=== PATIENT | male | born 1935 | race Caucasian/White ===

== ENCOUNTER 2016-06-16 11:01 | Emergency (ER) | payer OTHER, MEDICARE ==
--- NOTE | 2016-06-16 11:10 | UCPHY ---
H & P Patient Type: Established HPI/ROS: HPI CHIEF COMPLAINT: Right-sided sharp stabbing leg pain down to the foot HISTORY OF PRESENT ILLNESS: This patient is a very pleasant 81-year-old male significant past medical history for COPD on oxygen 2 L nasal cannula, hyperlipidemia, hypertension, presents to the urgent care with right-sided sharp stabbing intermittent leg pain that radiates to his foot. Patient tells me that he denies any recent injury or back injury. The pain is located in his right posterior superior iliac crest that radiates down his right gluteus across his anterior thigh down to his knee and then from his knee it shoots to his right foot. It is worse with certain movements. He denies any recent injury. Tells me he has been noticing it on and off over the past 2 months however really acutely worse over the past 3 days. He denies any bowel or bladder incontinence, denies saddle anesthesia, denies abdominal pain, denies chest pain or shortness of breath, denies urinary symptoms specifically blood in his urine. No history of sciatica. Past Medical History: COPD on oxygen 2 L nasal cannula, hyperlipidemia, hypertension Past Surgical History: patient states he has had "22 surgeries" includes but not limited to appendectomy cholecystectomy, recent knee scope, diaphragmatic repair on the right Social History: lives locally, denies drugs alcohol tobacco products Family History: noncontributory ROS REVIEW OF SYSTEMS: A comprehensive 10 point review of systems is otherwise negative aside from elements mentioned in the history of present illness. Exam Constitutional triage nursing summary reviewed, vital signs reviewed, awake/ alert. Eyes normal conjunctivae and sclera, EOMI, PERRLA. HENT normal inspection, atraumatic, moist mucus membranes, no epistaxis, neck supple/ no meningismus, no raccoon eyes. Respiratory clear to auscultation bilaterally, normal breath sounds, no respiratory distress, no wheezing. Cardiovascular rate normal, regular rhythm, no murmur, no edema, distal pulses normal. Gastrointestinal soft, non-tender, no rebound, no guarding, normal bowel sounds, no distension, no pulsatile mass. Genitourinary no CVA tenderness. Musculoskeletal back exam: no midline lumbar spine pain specifically no step- offs, no crepitus, full range of motion, no calf swelling, no tenderness of extremities, no meningismus, good pulses, neurovascularly intact. Of note this patient's right foot is neurovascular intact warm extremity good pulse, no evidence of significant calf swelling or calf pain. Skin pink, warm, & dry, no rash, skin atraumatic. Neurologic awake, alert and oriented x 3, AAOx3, moves all 4 extremities equally, motor intact, sensory intact, CN II-XII intact, normal cerebellar, normal vision, normal speech. Psychiatric normal mood/affect. Heme/Lymph/Immune no lymphadenopathy. Differential Diagnosis: includes but is not limited to in a particular order, sciatica, annular tear, compression fracture, nerve root compression, doubt ruptured AAA Medical Decision Making: this patient had an x-ray of the lumbar spine to rule out compression fracture or significant malalignment. I did explain to the patient that most likely this is sciatica will perform x-ray to make sure does not have significant compression fracture I will allow him to go home with [place] pain control. I did explain should probably follow up with his primary care doctor he continues to have sharp stabbing pain radiating down his right leg. Re-evaluation: 1209: Re-examination at this time this patient is resting comfortably. I did review his urinalysis an x-ray. Urinalysis shows no evidence of blood or infection. The x-ray shows degenerative joint disease however no evidence significant malalignment or compression fracture. ED x-ray lumbar spine: mild degenerative joint changes small lumbar drain mental canal. Stable dense atherosclerotic calcification of abdominal aorta and iliac arteries. Image interpreted by myself. 1213: I did review with this patient is x-ray results and urinalysis. Feels comfortable going home I did explain that he should follow up with his primary care doctor about his sciatica and back pain and lumbar radiculopathy. He may need outside imaging of an MRI. This time there is no evidence of acute cord compression or cauda equina syndrome. His x-ray she does show degenerative joint disease most likely has nerve root compression causing this severe sharp stabbing pain down right leg to foot. His otherwise leg is warm, and neurovascular intact. Source: Patient - Personal History Tetanus Vaccine Date: WITHIN 10 YRS - Medical/Surgical History Hx Asthma: No Hx Chronic Respiratory Disease: Yes Hx Diabetes: No Hx Cardiac Disease: No Hx Renal Disease: No Hx Cirrhosis: No Hx Alcoholism: No Hx HIV/AIDS: No Hx Splenectomy or Spleen Trauma: No Other PMH: depression, high cholesterol. sleep apnea. 17surgeries : 7 on r foot, vasectomy, bilat hernia repair, appy, cholecystecomy, ruptured diaphram, throat surgery x 2, tonsillectomy - Family History Significant Family History: No pertinent family hx - Social History Smoking Status: Never smoked Constitutional: Initial Vital Signs Temperature (C) 36.6 C 06/16/16 11:18 Heart Rate 86 06/16/16 11:18 Respiratory Rate 18 06/16/16 11:18 Blood Pressure 156/86 H 06/16/16 11:18 O2 Sat (%) 97 06/16/16 11:18 O2 Delivery Mode Room Air Allergies/Adverse Reactions: morphine [Morphine] Allergy (Unknown, Verified 07/30/15 09:01) VOMITS Home Medications: Medication Instructions Recorded Aspirin [Aspirin 81mg] 81 mg PO DAILY 12/15/10 Advair 100/50 (RX) 09/08/13 Proair Hfa Icu (RX) 09/08/13 Albuterol [Proventil Neb] 3 ml IH Q4 PRN #25 deyvial 07/30/15 Atorvastatin Calcium 07/30/15 Citalopram 07/30/15 Ipratropium 07/30/15 Curtis Red 3 Krill Oil 07/30/15 Oxygen Home 07/30/15 Preservision Softgel 07/30/15 Medical Decision Making - Data Points Laboratory Results: 06/16/16 11:15 Urine Color YELLOW Urine Appearance CLEAR Urine pH 5.0 (5.0-7.5) Ur Specific [place] >= 1.030 (1.002-1.030) Urine Protein NEGATIVE (NEGATIVE) Urine Ketones NEGATIVE (NEGATIVE) Urine Blood NEGATIVE (NEGATIVE) Urine Nitrate NEGATIVE (NEGATIVE) Urine Bilirubin NEGATIVE (NEGATIVE) Urine Urobilinogen 0.2 EU EU (0.2-1.0) Ur Leukocyte Esterase NEGATIVE (NEGATIVE) Ur Culture Indicated? NOT INDICATED (NI) Urine Glucose NEGATIVE (NEGATIVE) Departure - Departure Disposition: Home, Routine, Self-Care Clinical Impression: Sciatica Qualifiers: Laterality: right Qualified Code(s): M54.31 - Sciatica, right side Condition: Good Instructions: Lumbar Radiculopathy (ED), Sciatica (ED), Lower Back Exercises ( ED) Additional Instructions: 1. I do recommend that you follow up with your primary care doctor about your sciatica type pain. 2. I prescribed her limited supply of narcotic pain medicine called Joyce. This medication can make you drowsy and nauseous please be careful how much she take. 3.If you have severe pain nausea vomiting abdominal pain return to the emergency room urgent care. Referrals: Awa Long MD [Primary Care Provider] - As per Instructions - PQRS PQRS Measurement: 134: Depression screening and followup, PRIME MD-PHQ2 (12 years and older) Over the last 2 weeks, how often have you been bothered by any of the following problems? 1. Feeling down, depressed, or hopeless? 2. Little interest or pleasure in doing things? Patient answered no to both 1 and 2 130: Documentation of medications. Reviewed all patient medications, doses, route and frequency. 226: Do you smoke? No. 47: 65 and older: Advanced care planning. Declines 51: 18 years old and older with diagnosis of COPD, spirometry performance. Spirometry not performed; equipment not available. 52: 18 years old and older with COPD and symptoms of COPD or FEV1<60% predicted prescribed a B Agonist. Spirometry not performed; equipment not available.
[2016-06-16 11:20] VITALS: BP 156/86; RESP 18; TEMP 98; O2SAT 97
[2016-06-16 11:28] LABS: COLOR YELLOW; LEUKOCYTE ESTERASE,URINE NEGATIVE (NEGATIVE); NITRITE,URINE NEGATIVE (NEGATIVE)
[2016-06-16 11:44] VITALS: PULSE 86
== END 2016-06-16 12:30 | disposition home or self-care (01) ==
LOC: CED 11:01
DX: M54.31 Sciatica, right side (principal); E78.5 Hyperlipidemia, unspecified; I10 Essential (primary) hypertension; J44.9 Chronic obstructive pulmonary disease, unspecified
CPT/HCPCS: 72100; G0463; 81003-PO; 99214-PO

== ENCOUNTER 2016-11-01 08:34 | Inpatient (IN) | payer OTHER, MEDICARE ==
--- NOTE | 2016-11-01 08:50 | CPEKG ---
Heart Rate: 66 RR Interval: 909 P-R Interval: 204 QRSD Interval: 118 QT Interval: 432 QTC Interval: 453 P [place]: 76 QRS [place]: 107 T Wave [place]: 25 EKG Severity - ABNORMAL ECG - EKG Impression: SINUS RHYTHM EKG Impression: LEFT POSTERIOR FASCICULAR BLOCK Electronically Signed By: Eric Oneal 01-Nov-2016 15:47:09
--- NOTE | 2016-11-01 08:52 | EDPHY ---
HPI/HX/ROS/PE/MDM Narrative: CHIEF COMPLAINT: Left chest wall pain HPI: The patient is an 81-year-old male with a history of COPD who complains of sudden onset of left mid x-ray line pain that began at approximately 2:00 a.m. this morning. The patient was asleep and then rolled over onto his left side which caused severe pain along his left chest wall. Reports pain is improved by lying flat. He states he falls frequently and his fall and injured his chest several times over the last few weeks, but did not have any pain in his chest following those falls. He denies history of blood clot. No diaphoresis or shortness of breath. The patient denies pain anywhere else other than his chest wall. REVIEW OF SYSTEMS: Aside from elements discussed in the HPI, a comprehensive 10-point review of systems was reviewed and is negative. PMH: Includes COPD on baseline oxygen, hypertension, hyperlipidemia. SOCIAL HISTORY: Denies alcohol or drug abuse. PHYSICAL EXAM: General:Patient is alert, in no acute distress. ENT:Eyes are normal to inspection. ENT inspection normal. Neck: Normal inspection. Full range of motion. Respiratory:No respiratory distress. Breath sounds normal bilaterally. Palpation of left chest wall does not elicit pain, but patient states this is the area where it hurts. There is no ecchymosis, abrasion or rash. Cardiovascular: Regular rate and rhythm. Strong peripheral pulses. Normal cap refill. Abdomen:The abdomen is nontender to palpation. There are no peritoneal signs. There are normal bowel sounds. Back: Normal to inspection. No tenderness to palpation. Skin: Normal color. No rash. Warm and dry. Extremities: Normal appearance. Full range of motion. No pedal edema or calf tenderness. Neuro: Oriented x3. Normal motor function. Normal sensory function. (Eric Oneal) ED Course: EKG was ordered and interpreted by myself. Please see [employer] system for official reading. Chest x-ray viewed by myself. Interpreted by the radiologist as suspicious for left-sided pneumothorax. CT angio of the chest was performed and is positive for large left-sided pneumothorax, no PE. (Eric Oneal) This patient arrived from [facility]. He has a known large pneumothorax. He was met on arrival by Dr. Jayce Hwang. He has good vital signs and he is in no acute distress. The patient has been turned over to Dr. Hwang this point. (Lorenzo Alfonso) MDM: This patient presents with spontaneous onset of chest pain while lying in bed and is found to have a large pneumothorax. Given his history of COPD, I suspect this likely is a spontaneous pneumothorax. Patient does states that he has a history of some mild falls over the last few weeks, so we must entertain the idea this is possibly traumatic, however no rib fractures are seen and the chest wall is atraumatic, so I suspect this is unlikely. The patient requires transport to the ER at [facility] for chest tube placement. Given the fact that he is elderly, oxygen dependent and lives in assisted living facility, I think he would benefit from at least an observation stay in the hospital post chest tube. I spoke to the hospitalist service and Dr. Mosquera will be the admitting physician. I consulted Dr. Hwang from Surgery and he will see patient in the ER at [facility]. (Eric Oneal) - Data Points Imaging Results: Imaging Impressions Ribs w/Chest X-Ray 11/01/16 08:52 Impression: 1. Suspect new left basilar pneumothorax rather than bullous. 2. No discernible acute rib fracture. Comment: The case was discussed with Dr. Eric Oneal at the time of the study completion. Chest/Thorax CTA 11/01/16 09:40 Impression: 1. No evidence of pulmonary embolic disease. 2. Large left pneumothorax. 3. Emphysematous changes. 4. Multiple healed left rib fractures with no acute displaced rib fracture identified. 5. See above report for additional findings. Results called and discussed with Eric Oneal MD on 11/01/2016 10:15. Laboratory Results: Laboratory Results 11/01/16 08:40 11/01/16 08:40 11/01/16 11/01/16 11/01/16 08:40 08:40 08:40 WBC 7.17 10^3/uL 10^3/uL (3.80-9.50) RBC 5.47 10^6/uL 10^6/uL (4.40-6.38) Hgb 16.7 g/dL g/dL (13.7-17.5) Hct 49.8 % % (40.0-51.0) MCV 91.0 fL fL (81.5-99.8) MCH 30.5 pg pg (27.9-34.1) MCHC 33.5 g/dL g/dL (32.4-36.7) RDW 14.4 % % (11.5-15.2) Plt Count 149 10^3/uL L 10^3/uL (150-400) MPV 9.0 fL fL (8.7-11.7) Neut % (Auto) 74.4 % H % (39.3-74.2) Lymph % (Auto) 17.2 % % (15.0-45.0) [place] % (Auto) 6.4 % % (4.5-13.0) Eos % (Auto) 1.0 % % (0.6-7.6) Baso % (Auto) 0.3 % % (0.3-1.7) Nucleat RBC Rel Count 0.0 % % (0.0-0.2) Absolute Neuts (auto) 5.34 10^3/uL 10^3/uL (1.70-6.50) Absolute Lymphs (auto) 1.23 10^3/uL 10^3/uL (1.00-3.00) Absolute Monos (auto) 0.46 10^3/uL 10^3/uL (0.30-0.80) Absolute Eos (auto) 0.07 10^3/uL 10^3/uL (0.03-0.40) Absolute Basos (auto) 0.02 10^3/uL 10^3/uL (0.02-0.10) Absolute Nucleated RBC 0.00 10^3/uL 10^3/uL (0-0.01) Immature Gran % 0.7 % % (0.0-1.1) Immature Gran # 0.05 10^3/uL 10^3/uL (0.00-0.10) D-Dimer < 0.27 ug/mLFEU ug/mLFEU (0.00-0.50) Sodium 140 mEq/L mEq/L (134-144) Potassium 4.4 mEq/L mEq/L (3.5-5.2) Chloride 102 mEq/L mEq/L (97-110) Carbon Dioxide 27 mEq/l mEq/l (22-31) Anion Gap 11 mEq/L mEq/L (8-16) BUN 15 mg/dL mg/dL (7-23) Creatinine 0.8 mg/dL mg/dL (0.7-1.3) Estimated GFR > 60 Glucose 100 mg/dL mg/dL (70-100) Calcium 8.8 mg/dL mg/dL (8.5-10.4) Troponin I < 0.012 ng/mL ng/mL (0-0.034) Medications Given: Discontinued Medications Ketorolac Tromethamine (Toradol) 15 mg IVP EDNOW ONE Stop: 11/01/16 09:24 Last Admin: 11/01/16 09:29 Dose: 15 mg General Time Seen by Provider: 11/01/16 08:41 Initial Vital Signs: Initial Vital Signs Temperature (C) 37.2 C 11/01/16 08:59 Heart Rate 88 11/01/16 08:59 Respiratory Rate 18 11/01/16 08:59 Blood Pressure 181/100 H 11/01/16 08:59 O2 Sat (%) 97 11/01/16 08:59 O2 Delivery Mode Nasal Cannula O2 (L/minute) 12 Allergies/Adverse Reactions: morphine [Morphine] Allergy (Unknown, Verified 07/30/15 09:01) VOMITS Home Medications: Medication Instructions Recorded Aspirin [Aspirin 81mg] 81 mg PO DAILY 12/15/10 Advair 100/50 (RX) 09/08/13 Proair Hfa Icu (RX) 09/08/13 Albuterol [Proventil Neb] 3 ml IH Q4 PRN #25 deyvial 07/30/15 Atorvastatin Calcium 07/30/15 Citalopram 07/30/15 Ipratropium 07/30/15 Curtis Red 3 Krill Oil 07/30/15 Oxygen Home 07/30/15 Preservision Softgel 07/30/15 Hydrocodone/APAP 5/325 [[place] 1 - 2 tab PO Q4H PRN #14 tab 06/16/16 5/325] Departure - Departure Disposition: [facility] Clinical Impression: Pneumothorax, acute Condition: Fair
[2016-11-01 09:01] LABS: % IMMATURE GRANULYOCYTES 0.7 % (0.0-1.1); ABSOLUTE IMMATURE GRANULOCYTES 0.05 10^3/uL (0.00-0.10); ADD DIFF? NO; ADD MORPH? NO; ADD SCAN? NO; ATYPICAL LYMPHOCYTE FLAG 10 (0-99); FRAGMENT RBC FLAG 0 (0-99); HEMATOCRIT 49.8 % (40.0-51.0); HEMOGLOBIN 16.7 g/dL (13.7-17.5); LEFT SHIFT FLG 10 (0-99); LIPEMIA HEMOLYSIS FLAG 80 (0-99); MEAN CELL HEMOGLOBIN 30.5 pg (27.9-34.1); MEAN CELL HEMOGLOBIN CONCENTR. 33.5 g/dL (32.4-36.7); PLATELET CLUMPS FLAG 0 (0-99); PLATELET COUNT 149 10^3/uL (150-400); RED BLOOD CELL COUNT 5.47 10^6/uL (4.40-6.38); RED CELL DISTRIBUTION WIDTH 14.4 % (11.5-15.2)
[2016-11-01 09:19] LABS: ANION GAP 11 mEq/L (8-16); CALCIUM 8.8 mg/dL (8.5-10.4); CARBON DIOXIDE 27 mEq/l (22-31); CHLORIDE 102 mEq/L (97-110); CREATININE 0.8 mg/dL (0.7-1.3); GLOMERULAR FILTRATION RATE > 60; GLUCOSE 100 mg/dL (70-100); POTASSIUM 4.4 mEq/L (3.5-5.2); SODIUM 140 mEq/L (134-144)
[2016-11-01] MEDS ORDERED: KETOROLAC 15 MG/1 ML SDV IVP ONE (09:23)
[2016-11-01 09:44] LABS: TROPONIN I < 0.012 ng/mL (0-0.034)
[2016-11-01] MEDS ORDERED: IOPAMIDOL (ISOVUE 370) 100 ML BTL IV ONE (09:48)
[2016-11-01] MEDS ORDERED: ACETAMINOPHEN 325 MG TAB PO PRN (11:02)
[2016-11-01] MEDS ORDERED: ONDANSETRON 4 MG/2 ML VIAL IVP PRN (11:02)
[2016-11-01] MEDS ORDERED: ONDANSETRON DISINTEGRATING 4 MG TAB PO PRN (11:02)
[2016-11-01] MEDS ORDERED: NS 1,000 ML IV SCH (11:15)
[2016-11-01] MEDS ORDERED: BUPIVACAINE 0.25% 10 ML SDV SC ONE (12:24)
[2016-11-01] MEDS ORDERED: HYDROmorphONE/DILAUDID 1 MG/ML SYR ONE (12:29)
--- NOTE | 2016-11-01 13:03 | POSTOPPROG ---
Post Op Note Date of Operation: 11/01/16 Surgeon: Jayce Hwang (, FACS) Anesthesia: Local (Specify) Pre-op Diagnosis: left pneumothorax Post-op Diagnosis: same Procedure: left closed tube thoracostomy Inf/Abcess present in the surg proc area at time of surgery?: No Complications: none Drains: Other (#28Fr CT)
--- NOTE | 2016-11-01 15:05 | GHP ---
[f rep st] HISTORY AND PHYSICAL DATE OF ADMISSION: 11/01/2016 CHIEF COMPLAINT: Left-sided chest pain. HISTORY OF PRESENT ILLNESS: This is an 81-year-old male with a history of chronic lung disease, per his report, secondary to exposures at [employer] who presents with sudden onset of left-sided ches t pain when he rolled over onto his left side this morning in bed. Pain was very severe, sharp, abr upt, and limited his ability to breathe secondary to pain. He, therefore, presented for evaluation. Patient reports the day prior to presentation being in his normal state of health. No subjective fevers or chills. No chest pain. No shortness of breath. No cough. No changes in his bowel habit s. No constipation. No dysuria. No hematuria. No lower extremity edema or rashes. Patient exper ienced great limitation in his ability to get a deep breath secondary to pain after the pain initiat ed on the left side. Denied any hemoptysis. Had near immediate relief in the sensation of not bein g able to breathe after the chest tube was placed by Dr. Hwang. PAST MEDICAL HISTORY: 1. Chronic lung disease. Patient reports secondary to work exposures at [employer]. 2. Hyperlipidemia. 3. Depression. SOCIAL HISTORY: Negative for tobacco. Patient said he quit approximately 50 years ago. Had approx imately 30 pack-year history of smoking. Denies alcohol or illicit drugs. FAMILY HISTORY: Negative for lung disease. REVIEW OF SYSTEMS: A 10-point review of systems is negative with the exception of that reported in the HPI. ADVANCE DIRECTIVES: Patient wishes to be full cor, full tube. His son would be his medical decisio n maker. PHYSICAL EXAMINATION: VITAL SIGNS: Blood pressure 148/78, heart rate 62, respiratory rate 11, satt ing 99% on 11 L nonrebreather, 36.8. GENERAL: This is a very pleasant, elderly male, sitting comfo rtably in bed. HEENT: Notable for moist mucous membranes. Eye exam is negative for any icterus. CARDIAC: Patient is regular rate and rhythm. No murmurs, gallops, or rubs. PULMONARY: Patient comer s good respiratory effort. I hear breath sounds bilaterally. No wheezing is appreciated. GASTROIN TESTINAL: Positive bowel sounds. ABDOMEN: Soft and nontender. MUSCULOSKELETAL: Negative for any lower extremity edema. SKIN: Negative for any rashes. NEUROLOGIC: Patient is alert and oriented x3. PSYCHIATRIC: He is pleasant and cooperative on interview and examination. DATA: CT of the chest, which I personally reviewed and interpreted, shows a large left-sided pneumo thorax with emphysematous disease of the lung. There are peripheral blebs visible along the margin of the pneumothorax. No pneumonia is appreciated. White count is 7, hematocrit 49, platelet count of 149. Creatinine 0.8. Troponin less than 0.012. ASSESSMENT AND PLAN: This is an 81-year-old male presenting with left-sided chest pain and shortnes s of breath. 1. Acute large left-sided pneumothorax presumed secondary to spontaneous bleb rupture. Patient is status post chest tube placement by Dr. Hwang. There is a minimal air leak. Keep the chest tube in place on suction overnight with high-flow oxygen, as-needed pain medications, and supportive care. 2. Emphysematous lung disease. Patient does have a remote smoking history but does report he belie ves some of his chronic disease of the lung to be secondary to exposures at [place]. We will co ntinue his home inhaled medications without change. Again, the patient is on high-concentration oxy gen supplementation secondary to pneumothorax. 3. Hyperlipidemia. We will continue his statin therapy. 4. Prophylaxis. We will hold Lovenox secondary to recent instrumentation, and we will put sequenti al compression devices in place. DIET: Regular. DISPOSITION: I expect greater than 2 midnights, as the patient requires chest tube monitoring until safe for removal. I have discussed the case with Dr. Hwang from general surgery. He will follow al bala. We anticipate at least 2 or 3 midnights for safe titration of the chest tube. /[id number]/MODL
[2016-11-01] MEDS: OXYCODONE/APAP 5/325 TAB PO PRN (17:21)
[2016-11-01] MEDS: PRESERVISION AREDS2 FORMULA EYE VIT 1 EACH PO SCH (20:34)
[2016-11-01] MEDS: HYDROmorphONE/DILAUDID 1 MG/ML SYR IVP PRN (23:13)
[2016-11-01] MEDS: IPRATROPIUM BROMIDE 0.5 MG/2.5 ML DEYVIAL IH SCH (23:17)
[2016-11-02 05:25] LABS: % IMMATURE GRANULYOCYTES 0.4 % (0.0-1.1); ABSOLUTE IMMATURE GRANULOCYTES 0.02 10^3/uL (0.00-0.10); ADD DIFF? NO; ADD MORPH? NO; ADD SCAN? NO; ATYPICAL LYMPHOCYTE FLAG 0 (0-99); FRAGMENT RBC FLAG 0 (0-99); HEMATOCRIT 43.3 % (40.0-51.0); HEMOGLOBIN 14.4 g/dL (13.7-17.5); LEFT SHIFT FLG 10 (0-99); LIPEMIA HEMOLYSIS FLAG 80 (0-99); MEAN CELL HEMOGLOBIN CONCENTR. 33.3 g/dL (32.4-36.7); MEAN CELL VOLUME 93.3 fL (81.5-99.8); MEAN PLATELET VOLUME 9.2 fL (8.7-11.7); PLATELET CLUMPS FLAG 0 (0-99); PLATELET COUNT 112 10^3/uL (150-400); RED BLOOD CELL COUNT 4.64 10^6/uL (4.40-6.38); RED CELL DISTRIBUTION WIDTH 14.4 % (11.5-15.2)
[2016-11-02] MEDS: OXYCODONE/APAP 5/325 TAB PO PRN ×3 (08:11→15:01)
[2016-11-02] MEDS: ATORVASTATIN CALCIUM 40 MG TAB PO SCH (08:12)
[2016-11-02] MEDS: ASPIRIN 81 MG CHEWABLE TAB PO SCH (08:12)
[2016-11-02] MEDS: PRESERVISION AREDS2 FORMULA EYE VIT 1 EACH PO SCH ×2 (08:12→21:50)
--- NOTE | 2016-11-02 08:13 | SOAPPROG ---
SOAP Progress Note Assessment/Plan: Assessment: Plan: Subjective: l chest tube place yesterday pe: lungs clear no air leak. ordered daily cxr's- will dc chest tube tommorrow if lung up and no air leak tomorrow. Objective: Vital Signs Temp Pulse Resp BP Pulse Ox 36.7 C 76 16 161/110 H 97 11/02/16 07:26 11/02/16 07:26 11/02/16 07:26 11/02/16 07:26 11/02/16 07:26 Laboratory Results 11/02/16 04:29 11/01/16 11/02/16 11/03/16 05:59 05:59 05:59 Intake Total 440 Output Total 370 Balance 70 ICD10 Worksheet Patient Problems: Problems Problem Status Onset Pneumothorax, acute Acute
[2016-11-02] MEDS ORDERED: Herbals/Supplements -Info Only PO SCH (09:00)
[2016-11-02] MEDS: ALBUTEROL 60 PUFFS/8 GM MDI IH SCH (09:40)
[2016-11-02] MEDS: IPRATROPIUM BROMIDE 0.5 MG/2.5 ML DEYVIAL IH SCH ×2 (09:41→21:02)
--- NOTE | 2016-11-02 10:47 | HOSPPROG ---
Hospitalist Progress Note Assessment/Plan: * left pneumothorax * Chest tube in place * Possible DC tomorrow if no air leak * emphysema * depression * hyperlipidemia Subjective: No new complaints. Some chest pain with movement. No shortness of breath Objective: Vital Signs Temp Pulse Resp BP Pulse Ox 36.7 C 76 16 161/110 H 97 11/02/16 07:26 11/02/16 07:26 11/02/16 07:26 11/02/16 07:26 11/02/16 07:26 Laboratory Results 11/02/16 04:29 11/01/16 11/02/16 11/03/16 05:59 05:59 05:59 Intake Total 440 1351 Output Total 370 Balance 70 1351 - Physical Exam Constitutional: no apparent distress, appears nourished, not in pain Eyes: anicteric sclera, EOMI Ears, Nose, Mouth, Throat: moist mucous membranes, hearing normal Cardiovascular: regular rate and rhythym Respiratory: no respiratory distress, no rales or rhonchi, clear to auscultation Gastrointestinal: normoactive bowel sounds, soft, non-tender abdomen, no palpable masses Skin: warm Neurologic: AAOx3 Psychiatric: interacting appropriately, not anxious, not encephalopathic, thought process linear ICD10 Worksheet Patient Problems: Problems Problem Status Onset Pneumothorax, acute Acute
[2016-11-02] MEDS: HYDROmorphONE/DILAUDID 1 MG/ML SYR IVP PRN (15:30)
[2016-11-03] MEDS: OXYCODONE/APAP 5/325 TAB PO PRN (04:07)
[2016-11-03] MEDS: ASPIRIN 81 MG CHEWABLE TAB PO SCH (08:42)
[2016-11-03] MEDS: ATORVASTATIN CALCIUM 40 MG TAB PO SCH (08:42)
[2016-11-03] MEDS: PRESERVISION AREDS2 FORMULA EYE VIT 1 EACH PO SCH (08:42)
[2016-11-03] MEDS: HYDROmorphONE/DILAUDID 1 MG/ML SYR IVP PRN (09:23)
--- NOTE | 2016-11-03 09:49 | TRAUMAPN ---
Assessment/Plan: HD#3 81yo M s/p fall c L sided ptx, rib fx - Neuro: pain controlled, AO - Pulm: On supplemental NC, will likely need this on dc. CXR this AM showed no residual ptx. CT removed. Will get post pull this PM - CV: HDS - Abd: soft, NT, ND tolerating diet - Dispo: repeat film this afternoon, likely home with O2 this afternoon Subjective: Having a lot of pain at the CT site, otherwise doing well Objective: Vital Signs Temp Pulse Resp BP Pulse Ox 36.7 C 71 20 128/88 H 90 L 11/03/16 07:28 11/03/16 07:28 11/03/16 07:28 11/03/16 07:28 11/03/16 08:15 Laboratory Results 11/02/16 04:29 11/02/16 11/03/16 11/04/16 05:59 05:59 05:59 Intake Total 440 2271 Output Total 370 213 Balance 70 2058 Physical Exam - Physical Exam General Appearance: WD/WN, alert, no apparent distress EENT: PERRL/EOMI Neck: non-tender Respiratory: chest non-tender, lungs clear Cardiac/Chest: normal peripheral pulses Abdomen: normal bowel sounds, non-tender Back: Normal inspection Skin: normal color Lymphatic: no adenopathy Extremities: normal range of motion Neuro/Psych: no motor/sensory deficits, alert, normal mood/affect, oriented x 3
[2016-11-03] MEDS: ALBUTEROL 60 PUFFS/8 GM MDI IH SCH (09:57)
[2016-11-03] MEDS: IPRATROPIUM BROMIDE 0.5 MG/2.5 ML DEYVIAL IH SCH (09:58)
[2016-11-03 11:35] VITALS: BP 130/82; PULSE 65; RESP 16; TEMP 98.4; O2SAT 96
--- NOTE | 2016-11-03 14:57 | GDS ---
[f rep st] DISCHARGE SUMMARY DISCHARGE DIAGNOSES: 1. Full spontaneous pneumothorax. 2. Emphysema and chronic lung disease. HISTORY: This is an 81-year-old male who presented with sudden onset of left chest pain. HOSPITAL COURSE: Patient was admitted with a large pneumothorax. Surgery was consulted. A chest t ube was placed. This was removed a couple days later, and repeat chest x-ray shows no pneumothorax. This was probably due to his emphysematous lung disease. He will continue with home oxygen. FOLLOWUP INSTRUCTIONS: He is instructed to follow up with primary care doctor as needed. Greater than 30 minutes were spent on discharge. /[id number]/MODL
== END 2016-11-03 15:15 | DRG 201 ==
LOC: CED 08:34 → CEDHOLD 10:30 → OBSVTOIN 11:02 → F3E 14:01
PROVIDERS: ADMIT Hospitalist; ATTEND Hospitalist
PROC: 0B9P30Z Drainage of Left Pleura with Drainage Device, Percutaneous Approach (ICD-10-PCS; principal; 2016-11-01)
DX: J93.12 Secondary spontaneous pneumothorax (principal); J43.9 Emphysema, unspecified; I10 Essential (primary) hypertension; E78.5 Hyperlipidemia, unspecified; Z99.81 Dependence on supplemental oxygen; Z87.891 Personal history of nicotine dependence
CPT/HCPCS: 71101-PO; 71275-PO; 80048-PO; 84484-PO; 85025-PO; 85378-PO; 96374; 97116-GP; 97161-GP; G8978-GP-CI; G8979-GP-CI; G8980-GP-CI; J1170; J1885; J2405; Q9967

== ENCOUNTER 2017-01-04 09:06 | Emergency (ER) | payer OTHER, MEDICARE ==
[2017-01-04 09:14] VITALS: O2SAT 94
[2017-01-04] MEDS ORDERED: IBUPROFEN 200 MG TAB PO ONE (09:18)
[2017-01-04] MEDS ORDERED: ACETAMINOPHEN 500 MG TAB PO ONE (09:18)
[2017-01-04 09:24] VITALS: TEMP 97.5
[2017-01-04] MEDS ORDERED: LIDOCAINE 5% 1 EA PATCH TD SCH (09:30)
--- NOTE | 2017-01-04 09:32 | EDPHY ---
H & P Stated Complaint: stiff neck 3 days, no known injury Time Seen by Provider: 01/04/17 09:13 HPI/ROS: Chief Complaint: Stiff neck HPI: 81-year-old male woke from sleep 3 mornings ago with stiff neck. He has had persistent stiffness in his neck since that time. Patient states that it hurts in the side of his neck when he turns his head to the right or the left. Does not have any pain with looking upper looking down. No fevers or chills. Has not had any falls or injuries. No new numbness or tingling. No chest pain or shortness of breath. He has not been taking any medication for this. ROS: 10 point Review of Systems is negative except as noted in the HPI. PMH: COPD, hyperlipidemia Social History: No smoking, no alcohol, no recreational drug use Family History: non-contributory Physical Exam: Gen: Awake, Alert, No Distress HEENT: Nose: no rhinorrhea Eyes: PERRLA, EOMI Mouth: Moist mucosa Neck: Supple, mild bilateral paraspinal tenderness to palpation. No midline tenderness, step-offs or crepitus. He has got palpable spasm in the paraspinal muscles Chest: nontender, lungs clear to auscultation Heart: S1, S2 normal, no murmur Abd: Soft, non-tender, no guarding Back: no CVA tenderness, no midline tenderness Ext: no edema, non-tender Skin: no rash Neuro: CN II-XII intact, Sensation grossly intact, Strength 5/5 in bilateral upper and lower extremities - Personal History Tetanus Vaccine Date: WITHIN 10 YRS - Medical/Surgical History Hx Asthma: No Hx Chronic Respiratory Disease: Yes Hx Diabetes: No Hx Cardiac Disease: No Hx Renal Disease: No Hx Cirrhosis: No Hx Alcoholism: No Hx HIV/AIDS: No Hx Splenectomy or Spleen Trauma: No Other PMH: depression, high cholesterol. sleep apnea, COPD, intestinal stricture. 22 surgeries : 7 on r foot, vasectomy, bilat hernia repair, appy, cholecystecomy, ruptured diaphram, throat surgery x 2, tonsillectomy - Social History Smoking Status: Former smoker Constitutional: Initial Vital Signs Temperature (C) 36.4 C 01/04/17 09:12 Heart Rate 65 01/04/17 09:12 Respiratory Rate 20 01/04/17 09:12 Blood Pressure 146/80 H 01/04/17 09:12 O2 Sat (%) 94 01/04/17 09:12 O2 Delivery Mode Nasal Cannula O2 (L/minute) 3 Allergies/Adverse Reactions: morphine [Morphine] Allergy (Unknown, Verified 01/04/17 09:18) VOMITS Home Medications: Medication Instructions Recorded Albuterol [Proventil Inhaler HFA 1 - 2 puffs IH DAILY 09/08/13 (*)] Atorvastatin Calcium [Lipitor 40 40 mg PO DAILY 07/30/15 mg (*)] C/E/Zn/Cu/OM3/DHA/EPA/LUT/ZEAX 1 each PO BID 07/30/15 [Preservision Areds 2 Softgel] Herbals/Supplements -Info Only 1 ea PO DAILY 07/30/15 Aspirin [Aspirin 81mg (*)] 81 mg PO DAILY 11/01/16 oxyCODONE IR [Oxycodone Ir (*)] 5 - 10 mg PO Q6H PRN #20 tab 11/03/16 Medical Decision Making ED Course/Re-evaluation: Patient is improved after ibuprofen, acetaminophen and a Lidoderm patch. Will discharge him with alternating acetaminophen with ibuprofen for the next 2 days only. He can continue taking a lighted derm patch every day, these are available [id number]. Will follow up with primary care physician early next week for further evaluation. He will return for any new neurologic symptoms worsening pain. - Data Points Medications Given: Lidocaine (Lidoderm 5%) 1 ea TD DAILY SANJAY Stop: 07/03/17 09:29 Last Admin: 01/04/17 09:33 Dose: 1 ea Discontinued Medications Acetaminophen (Tylenol) 1,000 mg PO EDNOW ONE Stop: 01/04/17 09:19 Last Admin: 01/04/17 09:30 Dose: 1,000 mg Ibuprofen (Motrin) 400 mg PO EDNOW ONE Stop: 01/04/17 09:19 Last Admin: 01/04/17 09:31 Dose: 400 mg Departure - Departure Disposition: Home, Routine, Self-Care Clinical Impression: Neck muscle spasm Condition: Good Instructions: Spasmodic Torticollis (ED) Additional Instructions: Change the Lidoderm patch on your neck once a day. These are available over-the -counter at the pharmacy. You may alternate acetaminophen 1000 mg with ibuprofen 400 mg every 4 hours as needed for pain. Follow up with your primary care physician in 4-5 days for re-evaluation. Return to the emergency department for increasing pain, numbness or weakness in your arms, fevers, chills, or any other concerns. Referrals: Aaw Long MD [Primary Care Provider] - As per Instructions
[2017-01-04 10:43] VITALS: BP 132/71; PULSE 72; RESP 18
== END 2017-01-04 10:39 | disposition home or self-care (01) ==
LOC: CED 09:06
DX: M62.838 Other muscle spasm (principal); J44.9 Chronic obstructive pulmonary disease, unspecified; Z87.891 Personal history of nicotine dependence; Z79.82 Long term (current) use of aspirin

== ENCOUNTER 2018-05-21 07:19 | Emergency (ER) | payer OTHER, MEDICARE ==
[2018-05-21] MEDS ORDERED: HYDROmorphONE/DILAUDID 2 MG/ML INJ IVP ONE (07:50)
--- NOTE | 2018-05-21 07:56 | EDPHY ---
H & P Stated Complaint: Low back pain Time Seen by Provider: 05/21/18 07:43 HPI/ROS: CHIEF COMPLAINT: Low back pain HISTORY OF PRESENT ILLNESS: The patient is an 83-year-old man reports a remote history of low back pain and sciatica but not for the last several years. He states that 3 days ago while lying in bed he noticed low back pain. It is not worsened but has continued to hurt for the last 3 days. He states that when he lies still the pain goes away but it become severe any time he gets up or moves. He denies any recent falls or trauma. He states that he was simply lying in bed when it began. He does not have any immuno compromising conditions medications. He denies dysuria or hematuria. He urinated this morning without difficulty. No nausea vomiting. No diarrhea. No Fevers. He denies any weakness or neurologic deficits. He is ambulating. No bowel or bladder abnormalities. No radiation of the pain down his legs. No history of back surgery. Severity: Moderate Modifying factors: Worsened with movement, resolved with lying still. REVIEW OF SYSTEMS: Constitutional: denies: chills, fever, recent illness, recent injury EENTM: denies: blurred vision, double vision, nose congestion Respiratory: denies: cough, shortness of breath Cardiac: denies: chest pain, irregular heart rate, lightheadedness, palpitations Gastrointestinal/Abdominal: denies: abdominal pain, diarrhea, nausea, vomiting, blood streaked stools Genitourinary: denies: dysuria, frequency, hematuria, pain Musculoskeletal: See HPI Skin: denies: lesions, rash, jaundice, bruising Neurological: denies: headache, numbness, paresthesia, tingling, dizziness, weakness Hematologic/Lymphatic: denies: blood clots, easy bleeding, easy bruising Immunologic/allergic: denies: HIV/AIDS, transplant 10 systems reviewed and negative except as noted EXAM: GENERAL: Well-appearing, well-nourished and in no acute distress. HEAD: Atraumatic, normocephalic. EYES: Pupils equal round and reactive to light, extraocular movements intact, sclera anicteric, conjunctiva are normal. ENT: TMs normal, nares patent, oropharynx clear without exudates. Moist mucous membranes. NECK: Normal range of motion, supple without lymphadenopathy or JVD. LUNGS: Breath sounds clear to auscultation bilaterally and equal. No wheezes rales or rhonchi. HEART: Regular rate and rhythm without murmurs, rubs or gallops. ABDOMEN: Soft, nontender, normoactive bowel sounds. No guarding, no rebound. No masses appreciated. BACK: Patient points to lower back midline and bilateral. No radiation. No CVA tenderness, no spinal tenderness, step-offs or deformities EXTREMITIES: Normal range of motion, no pitting or edema. No clubbing or cyanosis. NEUROLOGICAL: Cranial nerves II through XII grossly intact. Normal speech, normal gait. 5/5 strength, normal movement in all extremities, normal sensation , normal reflexes PSYCH: Normal mood, normal affect. SKIN: Warm, dry, normal turgor, no visible rashes or lesions. Source: Patient Exam Limitations: No limitations - Personal History Current Tetanus Diphtheria and Acellular Pertussis (TDAP): Unsure Tetanus Vaccine Date: WITHIN 10 YRS - Medical/Surgical History Hx Asthma: No Hx Chronic Respiratory Disease: Yes Hx Diabetes: No Hx Cardiac Disease: No Hx Renal Disease: No Hx Cirrhosis: No Hx Alcoholism: No Hx HIV/AIDS: No Hx Splenectomy or Spleen Trauma: No Other PMH: COPD on home O2, depression, high cholesterol. sleep apnea, intestinal stricture. 22 surgeries : 7 on r foot, vasectomy, bilat hernia repair, appy, cholecystecomy, ruptured diaphram, throat surgery x 2, tonsillectomy - Family History Significant Family History: No pertinent family hx - Social History Smoking Status: Former smoker Alcohol Use: None Constitutional: Initial Vital Signs Temperature (C) 36.4 C 05/21/18 07:36 Heart Rate 69 05/21/18 07:36 Respiratory Rate 18 05/21/18 07:36 Blood Pressure 149/82 H 05/21/18 07:36 O2 Sat (%) 92 05/21/18 07:36 O2 Delivery Mode Room Air O2 (L/minute) 2 Allergies/Adverse Reactions: morphine [Morphine] Allergy (Unknown, Verified 05/21/18 07:34) VOMITS Home Medications: Medication Instructions Recorded Albuterol [Proventil Inhaler HFA 1 - 2 puffs IH DAILY 09/08/13 (*)] Atorvastatin Calcium [Lipitor 40 40 mg PO DAILY 07/29/16 mg (*)] C/E/Zn/Cu/OM3/DHA/EPA/LUT/ZEAX 1 each PO BID 07/30/15 [Preservision Areds 2 Softgel] Herbals/Supplements -Info Only 1 ea PO DAILY 07/30/15 Aspirin [Aspirin 81mg (*)] 81 mg PO DAILY 11/01/16 oxyCODONE IR [Oxycodone Ir (*)] 5 - 10 mg PO Q6H PRN #20 tab 11/03/16 Metaxalone [Skelaxin 800 mg (*)] 800 mg PO TID PRN #12 tab 05/21/18 Medical Decision Making - Diagnostics Imaging Results: Imaging Impressions Abdomen/Pelvis CT 05/21/18 07:51 Impression: 1. No nephrolithiasis or hydronephrosis. 2. Bilateral renal cysts, with the largest in the lower pole right kidney 6.9 cm. 3. Atherosclerotic aorta and iliac arteries without aneurysm. 4. Small hiatal hernia. 5. Prior cholecystectomy. 6. No bowel obstruction, splenomegaly, or significant adenopathy. 7. Multilevel moderate degenerative disk disease and facet arthropathy in the lumbar spine, resulting in at least mild central canal stenosis. Consider MRI lumbar spine if clinically indicated. Attention: This CT examination is specifically designed to evaluate patients who are clinically suspected of having acute obstructive uropathy. This examination does not use radiographic contrast, and as such, provides only a limited evaluation of the abdomen, pelvis and retroperitoneum. If there is further clinical suspicion for pathological conditions other than obstructive uropathy, a complete CT evaluation of the abdomen and pelvis utilizing intravenous, oral, and rectal contrast should be considered. Findings and recommendations discussed with Emergency Department physician, Dr. Richi Ocampo at 0841 hours on May 21, 2018. Final report concurs with initial preliminary interpretation. Imaging: Discussed imaging studies w/ electronic bench technician Radiologist ED Course/Re-evaluation: CT and lab work is reassuring. I re-evaluated the patient multiple times during his stay. He feels better after the Dilaudid. He is able to ambulate. He has no focal weakness or deficits. We discussed options. Will treat with muscle relaxants and have him follow up in the next few days if his symptoms are not improving. Encouraged rest and heat packs. Discussed indications for return to the emergency department. Patient agrees with this plan and feels comfortable going home. Differential Diagnosis: Partial list of the Differential diagnosis considered include but were not limited to; muscle strain, degenerative disc disease, radiculopathy and although unlikely based on the history and physical exam, I also considered obstruction, dissection, kidney stone, urinary tract infection. I discussed these differential diagnoses and the plan with the patient as well as the usual and expected course. The patient understands that the diagnosis is provisional and that in medicine we are not always correct and that further workup is often warranted. Usual and customary warnings were given. All of the patient's questions were answered. The patient was instructed to return to the emergency department should the symptoms at all worsen or return, otherwise to followup with the physician as we discussed. - Data Points Laboratory Results: Laboratory Results 05/21/18 08:00 05/21/18 08:00 05/21/18 05/21/18 08:00 08:00 WBC 5.09 10^3/uL 10^3/uL (3.80-9.50) RBC 5.12 10^6/uL 10^6/uL (4.40-6.38) Hgb 16.0 g/dL g/dL (13.7-17.5) Hct 49.1 % % (40.0-51.0) MCV 95.9 fL fL (81.5-99.8) MCH 31.3 pg pg (27.9-34.1) MCHC 32.6 g/dL g/dL (32.4-36.7) RDW 14.6 % % (11.5-15.2) Plt Count 169 10^3/uL 10^3/uL (150-400) MPV 9.3 fL fL (8.7-11.7) Neut % (Auto) 73.0 % % (39.3-74.2) Lymph % (Auto) 17.1 % % (15.0-45.0) [place] % (Auto) 7.1 % % (4.5-13.0) Eos % (Auto) 2.2 % % (0.6-7.6) Baso % (Auto) 0.4 % % (0.3-1.7) Nucleat RBC Rel Count 0.0 % % (0.0-0.2) Absolute Neuts (auto) 3.72 10^3/uL 10^3/uL (1.70-6.50) Absolute Lymphs (auto) 0.87 10^3/uL L 10^3/uL (1.00-3.00) Absolute Monos (auto) 0.36 10^3/uL 10^3/uL (0.30-0.80) Absolute Eos (auto) 0.11 10^3/uL 10^3/uL (0.03-0.40) Absolute Basos (auto) 0.02 10^3/uL 10^3/uL (0.02-0.10) Absolute Nucleated RBC 0.00 10^3/uL 10^3/uL (0-0.01) Immature Gran % 0.2 % % (0.0-1.1) Immature Gran # 0.01 10^3/uL 10^3/uL (0.00-0.10) Sodium 140 mEq/L mEq/L (135-145) Potassium 5.1 mEq/L mEq/L (3.5-5.2) Chloride 105 mEq/L mEq/L (97-110) Carbon Dioxide 28 mEq/l mEq/l (22-31) Anion Gap 7 mEq/L mEq/L (6-14) BUN 18 mg/dL mg/dL (7-23) Creatinine 1.0 mg/dL mg/dL (0.7-1.3) Estimated GFR > 60 Glucose 90 mg/dL mg/dL (70-100) Calcium 8.7 mg/dL mg/dL (8.5-10.4) Total Bilirubin 1.3 mg/dL mg/dL (0.1-1.4) Conjugated Bilirubin 0.3 mg/dL mg/dL (0.0-0.5) Unconjugated Bilirubin 1.0 mg/dL mg/dL (0.0-1.1) AST 36 IU/L IU/L (17-59) ALT 36 IU/L IU/L (21-72) Alkaline Phosphatase 114 IU/L IU/L (38-126) Total Protein 7.1 g/dL g/dL (6.3-8.2) Albumin 3.9 g/dL g/dL (3.5-5.0) Lipase 47 IU/L IU/L (23-300) Medications Given: Discontinued Medications Hydromorphone HCl (Dilaudid) 0.5 mg IVP EDNOW ONE Stop: 05/21/18 07:51 Last Admin: 05/21/18 08:41 Dose: 0.5 mg Metaxalone (Skelaxin) 800 mg PO ONCE ONE Stop: 05/21/18 09:39 Last Admin: 05/21/18 09:42 Dose: Not Given Point of Care Test Results: Urine Dip Collection Date 05/21/18 Collection Time 08:55 Specific [place] (1.002-1.030) 1.025 PH (5.0-7.5) 5.5 Leukocytes (Negative) Negative Nitrites (Negative) Negative Protein (Negative) Negative Glucose (Negative) Negative Ketones (Negative) Negative Urobilnogen (0.2-1.0 EU) 4.0 Bilirubin (Negative) Negative Blood (Negative) Negative Departure - Departure Disposition: Home, Routine, Self-Care Clinical Impression: Low back pain Qualifiers: Chronicity: acute Back pain laterality: bilateral Sciatica presence: without sciatica Qualified Code(s): M54.5 - Low back pain Condition: Fair Instructions: Acute Low Back Pain (ED) Referrals: Awa Long MD [Primary Care Provider] - 5-7 days, if not improved Prescriptions: Metaxalone [Skelaxin 800 mg (*)] 800 mg PO TID PRN #12 tab PRN Reason: Spasms
[2018-05-21 09:08] LABS: PLATELET COUNT 169 10^3/uL (150-400)
[2018-05-21] MEDS ORDERED: METAXALONE 800 MG TAB PO ONE (09:38)
[2018-05-21 10:07] VITALS: BP 168/92
== END 2018-05-21 09:50 | disposition home or self-care (01) ==
LOC: CED 07:19
DX: M54.5 Low back pain (principal)
CPT/HCPCS: 74176; 96374; 99285; J1170; 80076-ER

== ENCOUNTER 2018-05-30 12:27 | Emergency (ER) | payer OTHER, MEDICARE ==
[2018-05-30 12:41] VITALS: BP 125/78
--- NOTE | 2018-05-30 12:55 | EDPHY ---
H & P Stated Complaint: Pt. states slipped on ice last noc aprox [id number], lft arm with skin abras Time Seen by Provider: 05/30/18 12:46 HPI/ROS: Chief Complaint: Skin tear, arm bruising status post fall HPI: 83-year-old male had a mechanical fall last night when he slipped on the ice landing on his left arm. He sustained some bruising and has a subsequent skin tear from a Band-Aid the put on the top of it. He did not his head. No loss of consciousness. Was seen here 2 days ago for back pain and has had persistent pain but is not worsening. No chest pain or shortness of breath. No cough. No headache. No neck pain. No numbness or weakness. No arm pain or difficulty moving either extremities. ROS: 10 systems were reviewed and were negative except those elements noted in the HPI. PMH: COPD Social History: No smoking, no alcohol, no recreational drug use Family History: non-contributory Physical Exam: Gen: Awake, Alert, Airway Intact HEENT: Head: Atraumatic Eyes: PERRLA, EOMI Ears: No hemotympanum Nose: No epistaxis Mouth: Normal dentition, Airway patent Face: No deformity Neck: non-tender, no stepoff, Full ROM without pain Chest: non-tender, lungs CTA Heart: normal heart tones Abd: soft, non-tender, atraumatic Pelvis: non-tender, stable to AP and Lateral compression Back: atraumatic, no midline tenderness Ext: Left arm contusions with skin tear. No bony tenderness, full range of motion without pain, remainder of extremity exam unremarkable Skin: no rash Neuro: CN II-XII intact, Strength 5/5 in all extremities, sensation intact in all extremities - Personal History Current Tetanus Diphtheria and Acellular Pertussis (TDAP): Unsure Tetanus Vaccine Date: WITHIN 10 YRS - Medical/Surgical History Hx Asthma: No Hx Chronic Respiratory Disease: Yes Hx Diabetes: No Hx Cardiac Disease: No Hx Renal Disease: No Hx Cirrhosis: No Hx Alcoholism: No Hx HIV/AIDS: No Hx Splenectomy or Spleen Trauma: No Other PMH: COPD on home O2, depression, high cholesterol. sleep apnea, intestinal stricture. 22 surgeries : 7 on r foot, vasectomy, bilat hernia repair, appy, cholecystecomy, ruptured diaphram, throat surgery x 2, tonsillectomy,cataract - Social History Smoking Status: Former smoker Constitutional: Initial Vital Signs Temperature (C) 36.4 C 05/30/18 12:37 Heart Rate 59 L 05/30/18 12:37 Respiratory Rate 18 05/30/18 12:37 Blood Pressure 125/78 H 05/30/18 12:37 O2 Sat (%) 96 05/30/18 12:37 O2 Delivery Mode Nasal Cannula O2 (L/minute) 2 Allergies/Adverse Reactions: morphine [Morphine] Allergy (Unknown, Verified 05/30/18 12:35) VOMITS Home Medications: Medication Instructions Recorded Albuterol [Proventil Inhaler HFA 1 - 2 puffs IH DAILY 09/08/13 (*)] Atorvastatin Calcium [Lipitor 40 40 mg PO DAILY 07/30/15 mg (*)] C/E/Zn/Cu/OM3/DHA/EPA/LUT/ZEAX 1 each PO BID 07/30/15 [Preservision Areds 2 Softgel] Herbals/Supplements -Info Only 1 ea PO DAILY 07/30/15 Aspirin [Aspirin 81mg (*)] 81 mg PO DAILY 11/01/16 oxyCODONE IR [Oxycodone Ir (*)] 5 - 10 mg PO Q6H PRN #20 tab 11/03/16 Metaxalone [Skelaxin 800 mg (*)] 800 mg PO TID PRN #12 tab 05/21/18 Medical Decision Making ED Course/Re-evaluation: 83-year-old male with skin tear status post fall. No bony injury or abnormality. He has been dressed in a non adherent dressing. Will discharge with follow-up with primary care as needed. Departure - Departure Disposition: Home, Routine, Self-Care Clinical Impression: Skin avulsion, Contusion Condition: Good Instructions: Contusion in Adults (ED), Skin Avulsion (ED) Additional Instructions: Change the dressing once a day. Follow up with primary care physician in 2-3 days for wound check. Referrals: Awa Long MD [Primary Care Provider] - As per Instructions
[2018-05-30] MEDS ORDERED: TDAP ADULT 0.5 ML INJ (BOOSTRIX) IM ONE (13:26)
== END 2018-05-30 13:20 | disposition home or self-care (01) ==
LOC: CED 12:27 → EEVIPCON 12:27 → CED 13:20
DX: S51.802A Unspecified open wound of left forearm, initial encounter (principal); W00.0XXA Fall on same level due to ice and snow, initial encounter; Z23 Encounter for immunization; Y92.9 Unspecified place or not applicable; Y93.9 Activity, unspecified; Y99.9 Unspecified external cause status
CPT/HCPCS: 90471-ER; 99283-ER